=== PATIENT | male | born 1940 | race Caucasian/White ===

== ENCOUNTER → 2021-03-20 | Outpatient (CLI) | payer BC, MEDICARE ==
--- NOTE | 2021-03-21 09:36 | RAD ---
EXAM: RENAL ULTRASOUND CLINICAL HISTORY: LT FLANK PAIN COMPARISON: None available. TECHNIQUE: Ultrasound examination of the bilateral kidneys and urinary bladder was performed. FINDINGS: The right kidney measures 8.9 cm cm in bipolar length. Of note, the right kidney is more midline in l ocation, at least partially anterior to the aorta. The renal cortex is normal in thickness. Renal ech ogenicity is normal. There is no evidence for hydronephrosis, shadowing renal calculus or focal abno rmality . The left kidney measures 10.9 cm cm in bipolar length. The renal cortex is normal in thickness. Renal echogenicity is normal. There is no evidence for hydronephrosis, shadowing renal calculus. Small anabel al cyst measuring 1.6 cm Mild bladder wall thickening possibly cystitis. IMPRESSION: 1. Small cyst or extrarenal pelvis in the interpolar left kidney. 2. Otherwise grossly normal sonographic survey of the kidneys. 3. Mild bladder wall thickening may be seen with cystitis and can be correlated with urinalysis. Electronically signed by: Iam Randle MD (03/21/2021 9:33 AM) [id number]
== END ==
LOC: US 11:58
PROVIDERS: ATTEND Internal Medicine
DX: N28.1 Cyst of kidney, acquired (principal)
CPT/HCPCS: 76770